=== PATIENT | female | born 1980 ===

== ENCOUNTER 2018-02-14 01:12 | Emergency (ER) | payer OTHER ==
[2018-02-14] MEDS ORDERED: Sodium Chloride 0.9% 1,000 ML IV STA (01:52)
--- NOTE | 2018-02-14 01:56 | C.PDOC ---
History Of Present Illness 38 year old female presents to the ER with a complaint of LLQ and left flank pain intermittently for the past 3 days with new onset dysuria and frequency today. Denies fever or vomiting. Patient states she gets frequent UTIs but notes this feels different. Time Seen by Provider: 02/14/18 01:29 Chief Complaint (Nursing): Female Genitourinary History Per: Patient History/Exam Limitations: no limitations Onset/Duration Of Symptoms: Days (3), Intermittent Episodes Current Symptoms Are (Timing): Still Present Quality Of Discomfort: Unable To Describe Associated Symptoms: Urinary Symptoms (Dysuria, Frequency). denies: Fever, Vomiting Alleviating Factors: None Recent travel outside of the [place]: No Abnormal Vaginal Bleeding: No Past Medical History Reviewed: Historical Data, Nursing Documentation, Vital Signs Vital Signs: Last Vital Signs Temp 97.7 F 02/14/18 01:18 Pulse 99 H 02/14/18 01:18 Resp 20 02/14/18 01:18 BP 150/76 02/14/18 01:18 Pulse Ox 100 02/14/18 01:18 - Medical History PMH: Denies: Chronic Kidney Disease Family History: States: Unknown Family Hx - Social History Hx Alcohol Use: No Hx Substance Use: No - Immunization History Hx Tetanus Toxoid Vaccination: Yes Hx Influenza Vaccination: No Hx Pneumococcal Vaccination: Yes Review Of Systems Except As Marked, All Systems Reviewed And Found Negative. Constitutional: Negative for: Fever Cardiovascular: Negative for: Chest Pain, Palpitations Respiratory: Negative for: Cough, Shortness of Breath Gastrointestinal: Positive for: Abdominal Pain (LLQ). Negative for: Vomiting Genitourinary: Positive for: Dysuria, Frequency Musculoskeletal: Positive for: Other (Left flank) Physical Exam - Physical Exam Appears: Non-toxic Skin: Normal Color, Warm, Dry Head: Atraumatic, Normacephalic Eye(s): bilateral: Normal Inspection Oral Mucosa: Moist Neck: Normal, Supple Chest: Symmetrical, No Tenderness Cardiovascular: Rhythm Regular Respiratory: Normal Breath Sounds, No Rales, No Rhonchi, No Wheezing Gastrointestinal/Abdominal: Soft, No Tenderness Back: No CVA Tenderness Extremity: Normal ROM (x4) Neurological/Psych: Oriented x3, Normal Speech ED Course And Treatment - Laboratory Results Result Diagrams: 02/14/18 02:27 02/14/18 02:27 O2 Sat by Pulse Oximetry: 100 (Room air) Pulse Ox Interpretation: Normal Reevaluation Time: 04:47 Reassessment Condition: Improved (ASYMPT, PT APPEARS COMFORTABLE. STATES PREFERS OFFICE FOLLOW UP, UNABLE TO STAY FOR POTENTIAL PROCEDURE.) - Physician Consult Information Time Consulting Physician Contacted: 05:20 Physician Contacted: Milad Damon Medical Decision Making Medical Decision Making: Plan: * CT abd/pel * blood work * urinalysis * toradol * flomax * tylenol * IV fluids * IV lidocaine Disposition Counseled Patient/Family Regarding: Studies Performed, Diagnosis, Need For Followup, Rx Given - Disposition Referrals: Meagan Damon MD [Staff Provider] - Disposition: HOME/ ROUTINE Condition: IMPROVED Prescriptions: Acetaminophen/Codeine [Tylenol/Codeine 300 MG/30 MG] 1 tab PO Q4H #12 tab Ibuprofen [Motrin] 600 mg PO Q6 #30 tab Ondansetron [Zofran Odt] 4 mg PO TID PRN #9 odt PRN Reason: Nausea/Vomiting Tamsulosin [Flomax] 0.4 mg PO DAILY #14 cap Instructions: Kidney Stones (DC) Forms: Work/School/Gym Excuse, [facility] (Slovak) - Clinical Impression Clinical Impression: Ureterolithiasis - Scribe Statement The provider has reviewed the documentation as recorded by the Scribe Bk Osorio All medical record entries made by the Scribe were at my direction and perso jim dictated by me. I have reviewed the chart and agree that the record accurately reflects my personal performance of the history, physical exam, medical decision making, and the department course for this patient. I have also personally directed, reviewed, and agree with the discharge instructions and disposition.
[2018-02-14] MEDS ORDERED: Sodium Chloride 0.9% 250 ML IV ONE (02:12)
[2018-02-14 02:31] LABS: BASO % 0.4 % (0.0-2.0); EOS # 0.1 K/uL (0.0-0.7); EOS % 1.2 % (0.0-4.0); HEMOGLOBIN 11.7 g/dL (11.0-16.0); LYMPH # 2.3 K/uL (1.0-4.3); LYMPH % 23.3 % (20.0-40.0); MEAN CELL VOLUME 89.7 fL (81.0-99.0); MEAN CORPUSCULAR HEMOGLOBIN 30.2 pg (27.0-31.0); MEAN CORPUSCULAR HGB CONC 33.7 g/dL (33.0-37.0); MEAN PLATELET VOLUME 9.8 fL (7.2-11.7); MONO # 0.8 K/uL (0.0-0.8); MONO % 7.5 % (0.0-10.0); NEUT # 6.8 K/uL (1.8-7.0); NEUT % 67.6 % (50.0-75.0); RBC 3.87 Mil/uL (3.80-5.20); RED CELL DISTRIBUTION WIDTH 13.9 % (11.5-14.5); WHITE BLOOD COUNT 10.1 K/uL (4.8-10.8)
[2018-02-14 02:44] LABS: BLOOD UREA NITROGEN 13 mg/dL (7-17); CALCIUM 9.3 mg/dl (8.6-10.4); GFR NON-AFRICAN AMERICAN > 60
[2018-02-14] MEDS: Lidocaine 129 MG in Sodium Chloride 0.9% 100 ML IV STA ×2 (02:46→03:25)
[2018-02-14] MEDS ORDERED: Sodium Chloride 0.9% 1,000 ML IV ONE (03:57)
[2018-02-14] MEDS ORDERED: Sodium Chloride 0.9% 1,000 ML ONE (03:58)
[2018-02-14 04:32] LABS: SQUAMOUS EPITHIAL 1 /hpf (0-5); URINE BACTERIA RARE (<OCC); URINE BILIRUBIN NEGATIVE (NEGATIVE); URINE BLOOD 1+ (NEGATIVE); URINE CLARITY Clear (Clear); URINE COLOR Yellow (YELLOW); URINE GLUCOSE (UA) NORMAL (Normal); URINE LEUKOCYTE ESTERASE NEG Leu/uL (Negative); URINE PROTEIN NEGATIVE (NEGATIVE); URINE UROBILINOGEN NORMAL mg/dL (0.2-1.0)
[2018-02-14 05:09] VITALS: BP 115/72; PULSE 89; RESP 20; TEMP 98
[2018-02-14 05:23] VITALS: O2SAT 100
--- NOTE | 2018-02-14 11:03 | CT ---
Date of service: 02/14/2018 PROCEDURE: CT Abdomen and Pelvis without intravenous contrast HISTORY: Left flank pain. COMPARISON: None. TECHNIQUE: If the multiple contiguous axial images were performed through the abdomen and pelvis without the use of intravenous contrast. Subsequently, sagittal and coronal reformatted images were obtained. Radiation dose: Total exam DLP = 292.91 mGy-cm. This CT exam was performed using one or more of the following dose reduction techniques: Automated exposure control, adjustment of the mA and/or kV according to patient size, and/or use of iterative reconstruction technique. FINDINGS: LOWER THORAX: Grossly clear. LIVER: Unremarkable. No gross lesion or ductal dilatation. GALLBLADDER AND BILE DUCTS: Unremarkable. PANCREAS: Unremarkable. No gross lesion or ductal dilatation. SPLEEN: Unremarkable. ADRENALS: Unremarkable. No mass. KIDNEYS AND URETERS: Right kidney: Multiple nonobstructive renal calculi throughout the right kidney for example in the midpole measuring 6 millimeters with additional multiple scattered sub centimeter calculi throughout the right kidney. Left Kidney: Mild to moderate left renal hydroureteronephrosis with obstructing calculus measuring 7 millimeters in the distal left ureter. Additional multiple scattered calculi throughout the left kidney for example in the lower pole measuring up to 6 millimeters with additional multiple subcentimeter calculi throughout the left kidney. Mild perinephric fat stranding. VASCULATURE: Unremarkable. No aortic aneurysm. No aortic atherosclerotic calcification or mural plaque present. BOWEL: Unremarkable. No obstruction. No gross mural thickening. Scattered areas of underdistention throughout the colon. Is APPENDIX: Unremarkable. Normal appendix. PERITONEUM: Trace free fluid in the pelvic cul-de-sac LYMPH NODES: Unremarkable. No enlarged lymph nodes. BLADDER: Unremarkable. REPRODUCTIVE: Unremarkable. BONES: No acute fracture. OTHER FINDINGS: None. IMPRESSION: 1. Mild to moderate left renal hydroureteronephrosis with obstructing calculus measuring 7 millimeters in the distal left ureter. Additional multiple scattered calculi throughout the left kidney for example in the lower pole measuring up to 6 millimeters with additional multiple subcentimeter calculi throughout the left kidney. Mild perinephric fat stranding. 2. Multiple nonobstructive renal calculi throughout the right kidney for example in the midpole measuring 6 millimeters with additional multiple scattered sub centimeter calculi throughout the right kidney. These findings were preliminarily reported at 3:34 a.m. on 02/14/[address] Vidya Amador from [facility] rad.
== END 2018-02-14 05:25 | disposition home or self-care (01) ==
LOC: C.ER 01:12
DX: N20.1 Calculus of ureter (principal)
CPT/HCPCS: 74176; 80048; 81001; 82948; 85025; 87086; 96361; 96374; 96375; 99285; J1885; J2001; J2405; J7030